=== PATIENT | male | born 1965 | race Caucasian/White ===

== ENCOUNTER 2016-11-21 16:48 | Emergency (ER) | payer BC | END 2016-11-21 17:40 | disposition home or self-care (01) | LOC: ER 16:48 | DX: S01.411A Laceration without foreign body of right cheek and temporomandibular area, initial encounter (principal); I10 Essential (primary) hypertension; Z88.0 Allergy status to penicillin; W19.XXXA Unspecified fall, initial encounter | CPT/HCPCS: 99283 ==